=== PATIENT | male | born 1990 | race Caucasian/White ===

== ENCOUNTER 2019-04-23 16:29 | Emergency (ER) | payer OTHER, MEDICAID ==
[~2019-04-23] VITALS: Ht 167.6 cm; Wt 104.3 kg
--- NOTE | 2019-04-23 16:40 | NUR ---
Patient to ER bed 7 to gown for evaluation. Side rails up. Assumed care.
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
--- NOTE | 2019-04-23 17:00 | NUR ---
ER at bedside examining patient.
[2019-04-23] MEDS ORDERED: IBUPROFEN 600 MG TABLET PO ONE (17:30)
[2019-04-23 17:41] VITALS: BP_SYST 126
--- NOTE | 2019-04-23 17:41 | NUR ---
Patient given written and verbal discharge instructions and verbalizes understanding. ER MD discussed with patient the results and treatment provided. Patient in stable condition. ID arm band removed. Rx of Motrin, Bacitracin given. Patient educated on pain management and to follow up with PMD. Pain Scale 5/10, given pain medication prior to discharge, prescription sent home with patient, pain tolerable at this time for patient. Opportunity for questions provided and answered. Medication side effect fact sheet provided. Significant other at bedside for transportation.
== END 2019-04-23 17:41 | disposition home or self-care (01) ==
LOC: SED 16:29
DX: S60.512A Abrasion of left hand, initial encounter (principal); V89.2XXA Person injured in unspecified motor-vehicle accident, traffic, initial encounter; Y93.89 Activity, other specified; Y92.488 Other paved roadways as the place of occurrence of the external cause; Y99.8 Other external cause status
CPT/HCPCS: 99283

== ENCOUNTER 2019-12-23 15:32 | Emergency (ER) | payer MEDICAID, SELFPAY ==
[~2019-12-23] VITALS: Ht 162.6 cm; Wt 95.3 kg
[2019-12-23 16:19] VITALS: BP_SYST 177
--- NOTE | 2019-12-23 16:19 | NUR ---
Patient to ER Surge Tent for evaluation. Side rails up.
--- NOTE | 2019-12-23 16:20 | NUR ---
Patient came from home for evaluation of cough and fever x2 days. No signs or symptoms of distress noted.
--- NOTE | 2019-12-23 17:30 | NUR ---
Patient left without being seen.
--- NOTE | 2019-12-23 17:30 | NUR ---
Note ernie in [facility] - 12/23/19 at 1805 by DADA Patient left without being seen.
== END 2019-12-23 17:30 | disposition left against medical advice (07) ==
LOC: SED 15:32
DX: R05 Cough (principal); R50.9 Fever, unspecified; Z53.21 Procedure and treatment not carried out due to patient leaving prior to being seen by health care provider